=== PATIENT | female | born 1980 | race Caucasian/White ===

== ENCOUNTER 2017-10-23 08:47 | Emergency (ER) | payer OTHER ==
[2017-10-23] MEDS ORDERED: Gabapentin 300 MG Cap PO ONE (08:48)
[2017-10-23 09:00] VITALS: BP 139/86
[2017-10-23] MEDS: Gabapentin 100 MG Cap PO ONE (09:24)
[2017-10-23] MEDS: Dexamethasone 4 MG/ML SDV IM ONE (09:24)
[2017-10-23] MEDS ORDERED: Gabapentin 300 MG Cap ONE (09:25)
--- NOTE | 2017-10-23 09:44 | EDM.PDOC ---
"Scribed by Casi Ibanez 10/23/17 0944 for Sadie Martinez MD ED HPI GENERAL MEDICAL PROBLEM - General Chief Complaint: Upper Extremity Injury/Pain Stated Complaint: [id number] RIGHT SHOULDER PAIN Time Seen by Provider: 10/23/17 09:04 Source of Information: Reports: Patient, RN, RN Notes Reviewed History Limitations: Reports: No Limitations - History of Present Illness INITIAL COMMENTS - FREE TEXT/NARRATIVE: Patient presents to ER with complaint of neck pain radiating sharp burning pain with tingling from the neck to the distal tips of right thumb, index and middle finger. Denies injury, or any activity that she can relate to the cause of the onset of her pain. She first noticed the pain at the right neck about 4 days ago. Onset: Gradual Duration: Getting Worse Location: Reports: Upper Extremity, Right Quality: Reports: Ache Severity: Moderate Improves with: Reports: None Worsens with: Reports: None Associated Symptoms: Reports: No Other Symptoms Right Shoulder Pain Score (Numeric/FACES): 9 - Related Data Allergies Allergy/AdvReac Type Severity Reaction Status Date / Time No Known Allergies Allergy Verified 10/23/17 08:54 Home Meds: Home Meds . [No Known Home Meds] 10/23/17 [History] Past Medical History [employer] History: Reports: - Past Surgical History HEENT Surgical History: Reports: Adenoidectomy, Tonsillectomy Social & Family History - Family History Family Medical History: Noncontributory - Tobacco Use Smoking Status *Q: Never Smoker - Caffeine Use Caffeine Use: Reports: None - Recreational Drug Use Recreational Drug Use: No Review of Systems - Review of Systems Review Of Systems: ROS reveals no pertinent complaints other than HPI. ED EXAM, GENERAL - Physical Exam Exam: See Below Exam Limited By: No Limitations General Appearance: Alert, WD/WN, No Apparent Distress Eye Exam: Bilateral Eye: Normal Inspection Ears: Normal External Exam, Hearing Grossly Normal Nose: Normal Inspection Throat/Mouth: Normal Inspection, Normal Voice Head: Atraumatic, Normocephalic Neck: Non-Tender, Full Range of Motion (with increase radiating pain and tingling with neck rotation to the left. ), Tender Lateral (at the base of the neck on the right side only extending into the right trapezius without swelling or bruising. ). No: Carotid Bruit, Lymphadenopathy (L), Lymphadenopathy (R) Respiratory/Chest: No Respiratory Distress, Lungs Clear, Normal Breath Sounds, No Accessory Muscle Use, Chest Non-Tender Cardiovascular: Normal Peripheral Pulses, Regular Rate, Rhythm, No Edema, No Gallop, No JVD, No Murmur, No Rub Peripheral Pulses: 3+: Radial (L), Radial (R) Back Exam: Full Range of Motion, Muscle Spasm (right superior trapezius. ). No : CVA Tenderness (L), CVA Tenderness (R), Vertebral Tenderness Extremities: Normal Inspection, Normal Range of Motion, Non-Tender, Normal Capillary Refill, No Pedal Edema Neurological: Alert, Oriented, CN II-XII Intact, Normal Cognition, Normal Gait, Other (equal motor strength in bilateral upper extremities, with patient subjectively reporting the sensation of slight weakness in the right. Slight decrease to sharp and light touch to distal right upper extremity digits 1-3. ) Psychiatric: Normal Affect, Tearful (due to pain) Skin Exam: Warm, Dry, Intact, Normal Color, No Rash Course - Vital Signs Last Recorded V/S: Last Vital Signs Temp 37.4 C 10/23/17 08:55 Pulse 98 10/23/17 08:55 Resp 16 10/23/17 08:55 BP 139/86 10/23/17 08:55 Pulse Ox 98 10/23/17 08:55 - Orders/Labs/Meds Meds: Medications Discontinued Medications Generic Name Dose Route Start Last Admin Trade Name Lencho PRN Reason Stop Dose Admin Dexamethasone 8 mg 10/23/17 09:10 10/23/17 09:24 Dexamethasone IM 10/23/17 09:11 8 mg ONETIME ONE Administration Gabapentin 100 mg 10/23/17 09:10 10/23/17 09:24 Neurontin PO 10/23/17 09:11 100 mg ONETIME ONE Administration Gabapentin Confirm 10/23/17 09:25 Neurontin Administered 10/23/17 09:26 Dose 300 mg .ROUTE .K-MED ONE - Radiology Interpretation Free Text/Narrative:: [facility] Final Radiology Report Call: [phone] assistance Online chat: [email or web address] Information Name: SHEYLA FORD Age: 37Years F Date: 10/23/2017 SSN: -- : 1980 Study: XR SPINE CERVICAL 2 OR 3 VIEWS Requesting Physician: SADIE MARTINEZ Images: 2 Addl Studies: Provided Clinical History: Contrast: Contrast Medium: Contrast Amount: Contrast Method: Page 1 of 2 EXAM: XR Cervical Spine, 2 or 3 Views EXAM DATE/TIME: 10/23/2017 9:10 AM CLINICAL HISTORY: The patient is 37 years old and is female; Signs and symptoms; Radiculopathy; Cervical region; Patient HX: Neck pain radiating to rt arm and digits 1-3. No injury. TECHNIQUE: Frontal and lateral views of the cervical spine. COMPARISON: No relevant prior studies available. FINDINGS: Vertebral body heights are intact. Alignment is maintained. The dens appears intact. No acute fracture is identified. There is mild multilevel facet arthrosis, disc space narrowing and marginal osteophyte formation. It is difficult to evaluate for osteophytic encroachment of the neural foramina without oblique views. IMPRESSION: Mild degenerative disk disease which could be better evaluated by means of MRI as clinically indicated. Thank you for allowing us to participate in the care of your patient. SHEYLA FORD | Final Radiology Report CONFIDENTIALITY STATEMENT This report is intended only for use by the referring physician, and only in accordance with law. If you received this in error, call [phone]. Page 2 of 2 Dictated and Authenticated by: Galen Tran MD 10/23/2017 9:39 AM Departure - Departure Time of Disposition: 09:40 Disposition: Home, Self-Care 01 Condition: Good Clinical Impression: Degenerative cervical disc, Cervical radiculopathy due to degenerative joint disease of spine - Discharge Information Instructions: Cervical Radiculopathy, Degenerative Disk Disease Forms: ED Department Discharge Additional Instructions: RX: Gabapentin 300mg *Do not drive or work while under the influence of this medication. RX: Decadron 4mg *Take with food. Follow up with your primary doctor next week for recheck, and further evaluation. Consider MRI of cervical spine and or physical therapy if needed. I have read and agree with the documentation that has been completed regarding this visit. By signing this record, I attest that the documentation was completed in my physical presence and is an accurate record of the encounter."
== END 2017-10-23 09:46 | disposition home or self-care (01) ==
LOC: DL.ED 08:47
DX: M50.10 Cervical disc disorder with radiculopathy, unspecified cervical region (principal)
CPT/HCPCS: 72040; 96372; 99283; A9270; J1100